=== PATIENT | male | born 1965 | race Hispanic/Latino ===

== ENCOUNTER 2016-07-30 16:18 | Emergency (ER) | payer MEDICAID ==
--- NOTE | 2016-07-30 18:00 | Emergency Department Report ---
ED CPR HPI - General Chief Complaint: Cardiac Arrest/CPR Stated Complaint: CARDIAC ARREST Time Seen by Provider: 07/30/16 16:45 Source: EMS Mode of arrival: Stretcher Limitations: Other - History of Present Illness Initial Comments: 50-year-old male presents to the emergency department via EMS in cardiac arrest. Per report, the patient had a seizure earlier this afternoon and went to lay down. He was found later by family unresponsive and EMS was called. EMS reports there initial rhythm was PEA. CPR was started in the field and the patient was intubated by EMS prior to arrival. Prior to arrival in the emergency department, patient was administered 2 mg of epinephrine, IV lidocaine , and was defibrillated twice secondary to ventricular fibrillation. Further history is unable to be obtained from the patient due to his clinical condition. MD Complaint: found unresponsive Place: home Bystander CPR Performed: No Initial Findings in the Field: unresponsive, no respirations, no pulse, PEA ROSC in the Field: No Associated Injuries: No Treatments Prior to Arrival: intubation, chest compressions, defribrillated shocks # (2), epinephrine mgs # (2) - Related Data Home Medications Medication Instructions Recorded Confirmed Last Taken ALBUTEROL Inhaler [Proair] 2 puff IH QID PRN 05/15/13 02/21/16 12/03/14 19:00 Aspirin [Baby Aspirin] 81 mg PO QDAY 05/15/13 02/21/16 2 Weeks Ago Carvedilol [Coreg] 25 mg PO DAILY 05/15/13 02/21/16 12/04/14 08:00 Furosemide [Lasix] 80 mg PO BID 05/15/13 02/21/16 12/03/14 08:00 Insulin Glargine,Hum.rec.anlog 25 unit SQ TID 05/15/13 02/21/16 12/04/14 07:00 [Lantus Solostar] 12 UNITS Lisinopril [Zestril] 10 mg PO QDAY 05/15/13 02/21/16 12/04/14 07:00 5 MG levETIRAcetam [Keppra] 750 mg PO BID 05/15/13 02/21/16 12/04/14 07:00 Clopidogrel Bisulfate [Plavix] 1 tab PO DAILY 04/22/14 02/21/16 2 Weeks Ago Albuterol *Only Ed* [Proventil 1 neb IH DAILY PRN 12/04/14 02/21/16 12/03/14 21 :00 0.5% NEBS] tiZANidine [Zanaflex] 4 mg PO DAILY 12/04/14 02/21/16 12/03/14 21:00 Morphine [Morphine TAB] 15 mg PO Q6H 02/21/16 02/21/16 Unknown Previous Rx's Medication Instructions Recorded Last Taken Type Gabapentin [Neurontin] 600 mg PO Q8H #60 capsule 12/23/13 12/04/14 03:00 Rx Ciprofloxacin HCl [Cipro] 500 mg PO BID #10 tablet 12/04/14 Unknown Rx Oxycodone HCl/Acetaminophen 0.5 - 1 each PO Q6HR PRN #30 tablet 12/04/14 Unknown Rx [Percocet 10-325 mg] Morphine [Morphine TAB] 30 mg PO Q4-6H #20 tablet 01/12/15 Unknown Rx Oxycodone HCl/Acetaminophen 1 tab PO Q6H PRN #20 tablet 01/12/15 Unknown Rx [Percocet 10/325 mg] Allergies Allergy/AdvReac Type Severity Reaction Status Date / Time ciprofloxacin [From Cipro] Allergy Rash Verified 05/15/13 11:28 ciprofloxacin HCl Allergy Rash Verified 05/15/13 11:28 [From Cipro] hydromorphone HCl Allergy Rash Verified 05/15/13 11:28 [From Dilaudid] iodine Allergy Rash Verified 05/15/13 11:28 ketorolac tromethamine Allergy Rash Verified 05/15/13 11:28 [From Toradol] tramadol Allergy Hives Verified 05/08/14 07:45 ED Review of Systems ROS: Stated complaint: CARDIAC ARREST Other details as noted in HPI Comment: Unobtainable due to pts medical conditions ED Past Medical Hx - Past Medical History Hx Hypertension: Yes Hx CVA: Yes (multiple TIAs) Hx Heart Attack/AMI: Yes (2012) Hx Congestive Heart Failure: Yes Hx Diabetes: Yes (IDDM) Hx Renal Disease: No (kidney stones) Hx Arthritis: Yes Hx Seizures: Yes (last seizure 6-7 weeks ago, takes keppra) Hx Kidney Stones: Yes Hx Asthma: Yes Hx COPD: Yes (Advair and PRN nebulizer) Additional medical history: CAD, sleep apnea, degenerative disc, aneurysm. Chronic back injury - Surgical History Hx Open Heart Surgery: Yes (2012) Hx Appendectomy: Yes Additional Surgical History: CABG, SURGERY TO SCROTUM X 2 - Social History Smoking Status: Current Every Day Smoker Substance Use Type: None - Medications Home Medications: Home Medications Medication Instructions Recorded Confirmed Last Taken Type ALBUTEROL Inhaler [Proair] 2 puff IH QID PRN 05/15/13 02/21/16 12/03/14 19:00 History Aspirin [Baby Aspirin] 81 mg PO QDAY 05/15/13 02/21/16 2 Weeks Ago History Carvedilol [Coreg] 25 mg PO DAILY 05/15/13 02/21/16 12/04/14 08:00 History Furosemide [Lasix] 80 mg PO BID 05/15/13 02/21/16 12/03/14 08:00 History Insulin Glargine,Hum.rec.anlog 25 unit SQ TID 05/15/13 02/21/16 12/04/14 07:00 History [Lantus Solostar] 12 UNITS Lisinopril [Zestril] 10 mg PO QDAY 05/15/13 02/21/16 12/04/14 07:00 History 5 MG levETIRAcetam [Keppra] 750 mg PO BID 05/15/13 02/21/16 12/04/14 07:00 History Gabapentin [Neurontin] 600 mg PO Q8H #60 capsule 12/23/13 02/21/16 12/04/14 03: 00 Rx Clopidogrel Bisulfate [Plavix] 1 tab PO DAILY 04/22/14 02/21/16 2 Weeks Ago History Albuterol *Only Ed* [Proventil 1 neb IH DAILY PRN 12/04/14 02/21/16 12/03/14 21 :00 History 0.5% NEBS] Ciprofloxacin HCl [Cipro] 500 mg PO BID #10 tablet 12/04/14 02/21/16 Unknown Rx Oxycodone HCl/Acetaminophen 0.5 - 1 each PO Q6HR PRN #30 tablet 12/04/14 Unknown Rx [Percocet 10-325 mg] tiZANidine [Zanaflex] 4 mg PO DAILY 12/04/14 02/21/16 12/03/14 21:00 History Morphine [Morphine TAB] 30 mg PO Q4-6H #20 tablet 01/12/15 02/21/16 Unknown Rx Oxycodone HCl/Acetaminophen 1 tab PO Q6H PRN #20 tablet 01/12/15 02/21/16 Unknown Rx [Percocet 10/325 mg] Morphine [Morphine TAB] 15 mg PO Q6H 02/21/16 02/21/16 Unknown History ED Physical Exam - General Limitations: Other General appearance: obtunded - Head Head exam: Present: atraumatic, normocephalic - Eye Eye exam: Present: normal appearance. Absent: PERRL (pupils 4 mm equal and fixed) - ENT ENT exam: Present: normal exam, normal orophraynx (endotracheal tube in place) - Neck Neck exam: Present: normal inspection, full ROM. Absent: tenderness - Respiratory Respiratory exam: Present: normal lung sounds bilaterally (with mechanical ventilation) - Cardiovascular Cardiovascular Exam: Present: other (no palpable pulses) - GI/Abdominal GI/Abdominal exam: Present: soft. Absent: distended - Extremities Exam Extremities exam: Present: normal inspection, full ROM - Back Exam Back exam: Present: normal inspection, full ROM - Neurological Exam Neurological exam: Present: other (GCS 3T (E1, V1T, M1)) - Skin Skin exam: Present: dry, intact ED Course - Reevaluation(s) Reevaluation #1: 07/30/16 18:28 CPR was continued in the emergency department under my supervision. See hospital code sheet for details. Patient received multiple doses of epinephrine. He also received sodium bicarbonate, calcium chloride, and amiodarone. Patient did go into ventricular fibrillation and was shocked multiple times. Bedside ultrasound showed no cardiac activity. Total down time , including EMS, was approximately 45 minutes. Further resuscitative efforts were ceased. Time of recorded at 1639. Family has been notified. Critical care attestation.: If time is entered above; I have spent that time in minutes in the direct care of this critically ill patient, excluding procedure time. ED Disposition Clinical Impression: Cardiac arrest Disposition: Is pt being admited?: No Condition: Stable Time of Disposition: 16:39
[2016-07-30] MEDS ORDERED: XYLOCAINE/D5W 2GM/500ML DRIP IV ONE (21:22)
[2016-07-30] MEDS ORDERED: ATROPINE 0.1% (CARDIAC) ONE (21:22)
[2016-07-30] MEDS ORDERED: D5W IV ONE (21:22)
[2016-07-30] MEDS ORDERED: CORDARONE IV ONE (21:22)
[2016-07-30] MEDS ORDERED: SODIUM BICARBONATE IV ONE (21:22)
[2016-07-30] MEDS ORDERED: ADRENALIN ONE (21:22)
== END 2016-07-30 21:48 ==
LOC: ED 16:18
DX: I46.9 Cardiac arrest, cause unspecified (principal); I10 Essential (primary) hypertension; I63.9 Cerebral infarction, unspecified; I25.2 Old myocardial infarction; J45.909 Unspecified asthma, uncomplicated; E11.9 Type 2 diabetes mellitus without complications; M19.90 Unspecified osteoarthritis, unspecified site; F17.200 Nicotine dependence, unspecified, uncomplicated; Z79.4 Long term (current) use of insulin; Z79.82 Long term (current) use of aspirin; Z88.1 Allergy status to other antibiotic agents; Z88.8 Allergy status to other drugs, medicaments and biological substances; Z91.02 Food additives allergy status
CPT/HCPCS: 92950; 99285; J0171; J0282; J0461; J2001